=== PATIENT | female | born 1955 | race Caucasian/White ===

== ENCOUNTER 2016-12-21 10:00 | Inpatient (IN) ==
[2016-12-21] MEDS ORDERED: BENTYL LIQUID PO ONE (10:44)
[2016-12-21] MEDS ORDERED: NS 1,000 ML IV ONE (10:44)
--- NOTE | 2016-12-21 11:10 | PROVIDER DOCUMENTATION ---
HPI-Abdominal Pain/GI Problem - General Source: patient, family - History of Present Illness-ABD Nature of Presenting Problems: pt states on thursday she took a laxative which helped her have a bm, then yesterday continued with a few loose bm. today with crampling abd pain and pt states she has deep burping and is not passing gas. pt denies fever, nausea or vomiting but intermittent cramping remains. pt has had a long time problem with abd problems and up until about 2 years ago had irritable bowel syndrome but more recently problems with constipation pt states she used to see dr cobb for gi, but the last time she saw him she was not satisfied and would want someone else if needed and if possible. Abdominal Pain Onset Location: reports: RLQ, LLQ, periumbilical Pain Radiation: reports: back Quality of Pain: reports: aching, cramping Severity in ED: reports: moderate Timing: reports: intermittent Activities at Onset: reports: none Modifying Factors: improves with: nothing Last BM: last night Dark Stools Present?: reports: none noticed Rectal Bleeding: reports: none Emesis Description: reports: none <Manfred Hensley - Last Filed: 12/21/16 11:05> <Monique Best - Last Filed: 12/21/16 17:15> - General Chief Complaint: Abdominal Pain Stated Complaint: ABD PAIN Time Seen by Provider: 12/21/16 10:26 Allergies/Adverse Reactions: Patient Allergies Allergy/AdvReac Type Severity Reaction Status Date / Time tetanus and diphtheria AdvReac FLUSHING Verified 12/21/16 11:20 toxoids [tetanus & diphtheria toxoids] Home Medications: Home Medication List Medication Instructions Recorded Confirmed Last Taken Type Alprazolam [Xanax] 0.5 mg PO BID 01/31/16 12/21/16 12/21/16 09:00 History Aspirin 81 mg PO DAILY 01/31/16 12/21/16 12/21/16 09:00 History Clopidogrel Bisulfate [Plavix] 75 mg PO DAILY 01/31/16 12/21/16 12/21/16 09:00 History Isosorbide Dinitrate [Isordil] 30 mg PO QHS 01/31/16 12/21/16 12/20/16 History Metoprolol [Lopressor] 50 mg PO DAILY 01/31/16 12/21/16 12/21/16 09:00 History Pravastatin Sodium 20 mg PO DAILY 01/31/16 12/21/16 12/21/16 09:00 History Spironolactone [Aldactone] 12.5 mg PO DAILY 01/31/16 12/21/16 12/21/16 09:00 History Warfarin [Coumadin] 3 mg PO DIRECTED 01/31/16 12/21/16 12/21/16 09:00 History Escitalopram Oxalate [Lexapro] 10 mg PO DAILY 12/21/16 12/21/16 12/21/16 09:00 History Losartan [Cozaar] 50 mg PO DAILY 12/21/16 12/21/16 12/20/16 History Pantoprazole Sodium 40 mg PO DAILY 12/21/16 12/21/16 12/21/16 09:00 History Warfarin [Coumadin] 4 mg PO DIRECTED PRN 12/21/16 12/21/16 12/19/16 History Review of Systems - Adult - REVIEW OF SYSTEMS - ADULT Constitutional: reports: see HPI Eyes: reports: no symptoms reported Ears, Nose, Mouth & Throat: reports: no symptoms reported Cardiovascular: reports: no symptoms reported Respiratory: reports: no symptoms reported Gastrointestinal: reports: see HPI Genitourinary: reports: see HPI, other (has not urinated since last night as well) Musculoskeletal: reports: no symptoms reported Integumentary: reports: no symptoms reported Neurological: reports: no symptoms reported Psychiatric: reports: no symptoms reported Endocrine: reports: no symptoms reported Hematologic/Lymphatic: reports: no symptoms reported Allergic/Immunologic: reports: no symptoms reported All Other Systems: Reviewed and Negative <Manfred Hensley - Last Filed: 12/21/16 11:05> Past History - Adult - PAST MEDICAL HISTORY-ADULT Review of Records: reports: Old Records Reviewed, Nursing Assessment Review, Medications Reviewed Major Childhood Illnesses: reports: denies history Cardiovascular: reports: CHF, PR Respiratory: reports: COPD Gastrointestinal: reports: IBS Genitourinary: reports: denies history Musculoskeletal: reports: denies history Neurological: reports: denies history Psychiatric: reports: denies history Endocrine/Immune: reports: denies history - PRIOR SURGERIES/PROCEDURES Surgical/Procedure History: reports: hysterectomy, other - IMMUNIZATION STATUS Childhood Immunizations: See Nurse Assessment Flu Vaccine: See Nurse Assessment - FAMILY HISTORY Family History: reviewed, not pertinent - SOCIAL HISTORY Smoking: quit greater than 1 year Substance Use: none/never Alcohol Use Frequency: never Living Situation: family <Manfred Hensley - Last Filed: 12/21/16 11:05> Physical Exam-General - PHYSICAL EXAM-ADULT Initial Vital Signs Reviewed: Yes - CONSTITUTIONAL General Appearance: appears well, alert, no apparent distress - EYES Eyes: PERRL/EOMI - HEAD, EARS, NOSE, MOUTH & THROAT HENMT: normocephalic/atraumatic, moist mucous membranes, normal ENT inspection - NECK Neck: non-tender, full range of motion, supple, normal inspection - RESPIRATORY Respiratory: chest non-tender, lungs clear, normal breath sounds, no pleuratic chest pain, no respiratory distress, no accessory muscle use. negative: respiratory distress - CARDIOVASCULAR Cardiovascular: normal peripheral pulses, regular rate, rhythm. negative: no edema - GASTROINTESTINAL (ABDOMEN) Abdominal Exam: normal bowel sounds, non tender (periumbilical and bilateral lower), soft - MUSCULOSKELETAL Back Exam: normal inspection, no CVA tenderness, no vertebral tenderness. negative: CVA tenderness, decreased range of motion, ecchymosis Extremity: normal range of motion, non-tender, normal inspection, no pedal edema , no calf tenderness - SKIN Integumentary: normal color, normal turgor, warm/dry - NEUROLOGIC Neurologic: grossly normal - PSYCHIATRIC Psych/Mental Status: normal thought content, normal thought process, oriented x 3, anxious <Manfred Hensley - Last Filed: 12/21/16 11:05> Progress - PLAN OF CARE/RESULTS Progress/Plan/Lab Results: chart reviewed will check labs and ct a/p with iv contrast. r/o infection obstruction vs irritable bowel <Manfred Hensley - Last Filed: 12/21/16 11:05> - PLAN OF CARE/RESULTS Progress/Plan/Lab Results: Laboratory Tests 12/21/16 12/21/16 12/21/16 11:30 11:30 11:30 WBC 8.65 RBC 4.19 L Hgb 12.7 Hct 38.8 MCV 92.6 MCH 30.3 MCHC 32.7 L RDW Std Deviation 12.7 Plt Count 224 MPV 10.2 Immature Gran % (Auto) 0.0 Neut % (Auto) 82.2 H Lymph % (Auto) 12.6 L [place] % (Auto) 5.1 Eos % (Auto) 0.0 Baso % (Auto) 0.1 Immature Gran # (Auto) 0.00 Neut # (Auto) 7.11 H Lymph # (Auto) 1.09 L [place] # (Auto) 0.44 Eos # (Auto) 0.00 Baso # (Auto) 0.01 PT INR Sodium 140 Potassium 3.9 Chloride 98 Carbon Dioxide 29 Anion Gap 13 BUN 8 Creatinine 0.9 Estimated GFR/1.73 m2 > 60 BUN/Creatinine Ratio 9 Glucose 112 H Calculated Osmolality 278 Calcium 9.6 Total Bilirubin 0.46 AST 15 ALT 6 L Alkaline Phosphatase 92 Total Protein 7.1 Albumin 4.1 Globulin 3.0 Albumin/Globulin Ratio 1.4 Amylase 82 Lipase 19 Urine Source CLEAN CATCH Urine Color YELLOW Urine Turbidity CLEAR Urine pH 6.0 Ur Specific [place] 1.017 Urine Protein NEGATIVE Ur Glucose (Stick) NEGATIVE Ur Ketones (Stick) NEGATIVE Urine Blood SMALL A Urine Nitrite POSITIVE A Urine Bilirubin NEGATIVE Urobilinogen Dipstick NORMAL Urine Leukocytes NEGATIVE Urine WBC (Auto) <10 Urine RBC (Auto) <10 U Epithel Cells (Auto) <10 Urine Bacteria (Auto) 4+ 12/21/16 11:30 WBC RBC Hgb Hct MCV MCH MCHC RDW Std Deviation Plt Count MPV Immature Gran % (Auto) Neut % (Auto) Lymph % (Auto) [place] % (Auto) Eos % (Auto) Baso % (Auto) Immature Gran # (Auto) Neut # (Auto) Lymph # (Auto) [place] # (Auto) Eos # (Auto) Baso # (Auto) PT 44.2 H INR 3.86 Sodium Potassium Chloride Carbon Dioxide Anion Gap BUN Creatinine Estimated GFR/1.73 m2 BUN/Creatinine Ratio Glucose Calculated Osmolality Calcium Total Bilirubin AST ALT Alkaline Phosphatase Total Protein Albumin Globulin Albumin/Globulin Ratio Amylase Lipase Urine Source Urine Color Urine Turbidity Urine pH Ur Specific [place] Urine Protein Ur Glucose (Stick) Ur Ketones (Stick) Urine Blood Urine Nitrite Urine Bilirubin Urobilinogen Dipstick Urine Leukocytes Urine WBC (Auto) Urine RBC (Auto) U Epithel Cells (Auto) Urine Bacteria (Auto) Orders Category Date Time Status Saline Loc DIRECTED Care 12/21/16 10:45 Active NPO Diet 12/21/16 10:[address] ABD/PELVIS W/ IV CONT ONLY [CT] Stat Exams 12/21/16 10:44 Draft ABG [RESP] Routine Lab 12/21/16 13:08 Ordered AMYLASE [CHEM] Stat Lab 12/21/16 11:30 Completed CBC WITH ELECTRONIC DIFF [HEME] Stat Lab 12/21/16 11:30 Completed COMPREHENSIVE METABOLIC PANEL [CHEM] Stat Lab 12/21/16 11:30 Completed LIPASE [CHEM] Stat Lab 12/21/16 11:30 Completed PROTIME WITH INR [COAG] Stat Lab 12/21/16 11:30 Completed URINALYSIS W/POSS RFLX CULT [URINALYSIS] Stat Lab 12/21/16 11:30 Completed URINE CULTURE [RM] Routine Lab 12/21/16 12:07 Received 0.9% Sodium Chloride Inj [Ns] 1,000 ml Med 12/21/16 10:44 Discontinued IV 999 mls/hr Dicyclomine [Bentyl Liquid] Med 12/21/16 10:44 Discontinued 10 mg PO NOW ONE Metronidazole 500 mg/Ns [Flagyl 500 mg/Ns] 100 ml Med 12/21/16 13:09 Active IV NOW Piperacil/Tazobact 3.375 gm/Ns [Zosyn 3.375 gm/Ns] 50 Med 12/21/16 13:09 Active ml IV NOW Vital Signs - 24 hr 12/21/16 10:17 Temperature 97.8 F Pulse Rate 87 Respiratory 20 Rate Blood Pressure 125/84 O2 Sat by Pulse 96 Oximetry Laboratory Tests 12/21/16 12/21/16 12/21/16 11:30 11:30 11:30 WBC 8.65 RBC 4.19 L Hgb 12.7 Hct 38.8 MCV 92.6 MCH 30.3 MCHC 32.7 L RDW Std Deviation 12.7 Plt Count 224 MPV 10.2 Immature Gran % (Auto) 0.0 Neut % (Auto) 82.2 H Lymph % (Auto) 12.6 L [place] % (Auto) 5.1 Eos % (Auto) 0.0 Baso % (Auto) 0.1 Immature Gran # (Auto) 0.00 Neut # (Auto) 7.11 H Lymph # (Auto) 1.09 L [place] # (Auto) 0.44 Eos # (Auto) 0.00 Baso # (Auto) 0.01 PT INR Specimen Type Sample Site pH pCO2 pO2 HCO3 Base Excess Oxyhemoglobin ABG O2 Sat (Calculated) ABG O2 Saturation ABG Carboxyhemoglobin ABG Methemoglobin Sha Test A-a O2 Difference Total Hemoglobin Lactate Blood Gas Modality FiO2 % Sodium 140 Potassium 3.9 Chloride 98 Carbon Dioxide 29 Anion Gap 13 BUN 8 Creatinine 0.9 Estimated GFR/1.73 m2 > 60 BUN/Creatinine Ratio 9 Glucose 112 H Calculated Osmolality 278 Calcium 9.6 Total Bilirubin 0.46 AST 15 ALT 6 L Alkaline Phosphatase 92 Total Protein 7.1 Albumin 4.1 Globulin 3.0 Albumin/Globulin Ratio 1.4 Amylase 82 Lipase 19 Urine Source CLEAN CATCH Urine Color YELLOW Urine Turbidity CLEAR Urine pH 6.0 Ur Specific [place] 1.017 Urine Protein NEGATIVE Ur Glucose (Stick) NEGATIVE Ur Ketones (Stick) NEGATIVE Urine Blood SMALL A Urine Nitrite POSITIVE A Urine Bilirubin NEGATIVE Urobilinogen Dipstick NORMAL Urine Leukocytes NEGATIVE Urine WBC (Auto) <10 Urine RBC (Auto) <10 U Epithel Cells (Auto) <10 Urine Bacteria (Auto) 4+ 12/21/16 12/21/16 11:30 13:57 WBC RBC Hgb Hct MCV MCH MCHC RDW Std Deviation Plt Count MPV Immature Gran % (Auto) Neut % (Auto) Lymph % (Auto) [place] % (Auto) Eos % (Auto) Baso % (Auto) Immature Gran # (Auto) Neut # (Auto) Lymph # (Auto) [place] # (Auto) Eos # (Auto) Baso # (Auto) PT 44.2 H INR 3.86 Specimen Type ARTERIAL Sample Site R BRACHIAL pH 7.46 H pCO2 41 pO2 47 L* HCO3 28.5 H Base Excess 4.9 H Oxyhemoglobin 86.6 L* ABG O2 Sat (Calculated) 14.5 L ABG O2 Saturation 90.2 L ABG Carboxyhemoglobin 2.10 ABG Methemoglobin 1.9 H Sha Test NO A-a O2 Difference 51.0 Total Hemoglobin 11.9 Lactate 0.80 Blood Gas Modality ROOM AIR FiO2 % 21.0 Sodium Potassium Chloride Carbon Dioxide Anion Gap BUN Creatinine Estimated GFR/1.73 m2 BUN/Creatinine Ratio Glucose Calculated Osmolality Calcium Total Bilirubin AST ALT Alkaline Phosphatase Total Protein Albumin Globulin Albumin/Globulin Ratio Amylase Lipase Urine Source Urine Color Urine Turbidity Urine pH Ur Specific [place] Urine Protein Ur Glucose (Stick) Ur Ketones (Stick) Urine Blood Urine Nitrite Urine Bilirubin Urobilinogen Dipstick Urine Leukocytes Urine WBC (Auto) Urine RBC (Auto) U Epithel Cells (Auto) Urine Bacteria (Auto) - CT/MRI 1 CT Study: Abdomen, Pelvis Impression: Abnormal (very severe 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 moderately long segmental wall thickening with inflammation of the mid small bowel causing obstruction. the major differential possiblities include ischemic disease, Crohn disease, or focal enteritis. no perforation or adenopathy) - CONSULTS/PCP/HOSPITALIST Notification #1 *Consult/PCP/Hospitalist*: Dr. Mendez Time Discussed: 13:16 (Dr. Mendez states will look at scan and will see Pt in ED ) Reason/Comments: Dr. Hensley consulted with Dr. Mendez about Pt Consult Disposition: Will see in ED #2 Consult: Dr. Mendez Time Discussed: 13:46 Reason/Comments: Dr. Hensley consults with Dr. Mendez about Pt Consult Disposition: other (Dr. Mendez states admit Pt with hospitalist. Dr. Mendez states will have NG tube placed today and will consult with his partners about SBO.) #3 Consult: Dr. Vu Time Discussed: 13:58 (Dr. Vu accepted admit ) Reason/Comments: Dr. Hensley consulted with Dr. Vu about admit of Pt Consult Disposition: Admit <Monique Best - Last Filed: 12/21/16 17:15> Departure <Manfred Hensley - Last Filed: 12/21/16 11:05> - Departure Time of Disposition Order: 14:02 Certified Medical Emergency: Emergent <Monique Best - Last Filed: 12/21/16 17:15> - Departure DIAGNOSIS: Small bowel obstruction Disposition: ADMITTED INPATIENT 09 Condition: Stable Attestation - Scribe Verification/Attestation Scribe:: Monique Best Acting as Scribe for:: Manfred Hensley Scribe documention review:: This chart was documented by a scribe and accurately reflects the service the provider performed and the decisions made by the provider. <Monique Best - Last Filed: 12/21/16 17:15> Physician Attestation
[2016-12-21 11:56] LABS: MANUAL DIFF NEEDED? NO; URINE MICRO REVIEW NEEDED? NO; URINE SOURCE CLEAN CATCH
[2016-12-21 12:01] LABS: BASO% 0.1 % (0.0-0.8); HEMATOCRIT 38.8 % (37.0-47.0); HEMOGLOBIN 12.7 g/dL (12.0-16.0); LYMPH# 1.09 X1000 (1.2-3.4); LYMPH% 12.6 % (20.5-51.1); MCH 30.3 PG (27-31); MCHC 32.7 g/dL (33-37); MCV 92.6 FL (81-99); MONO# 0.44 X1000 (0.11-0.59); MONO% 5.1 % (1.7-9.3); MPV 10.2 FL (7.4-10.4); NEUT% 82.2 % (42.2-75.2); PLT 224 X1000 (130-400); RBC 4.19 XMIL (4.2-5.4)
[2016-12-21 12:02] LABS: BILIRUBIN URINE NEGATIVE (NEGATIVE); BLOOD URINE SMALL (NEGATIVE); COLOR YELLOW; GLUCOSE URINE NEGATIVE (NEGATIVE); LEUKOCYTES URINE NEGATIVE (NEGATIVE); NITRITE URINE POSITIVE (NEGATIVE); PROTEIN URINE NEGATIVE (NEGATIVE); SP GRAVITY URINE 1.017; TURBIDITY URINE CLEAR (CLEAR); UROBILINOGEN URINE NORMAL (NORMAL)
[2016-12-21 12:04] LABS: UR EPITHELIAL CELLS <10 /HPF (<10); URINE BACTERIA 4+ /HPF; URINE CULTURE NEEDED? YES; URINE RBC <10 /HPF (<10); URINE WBC <10 /HPF (<10)
[2016-12-21 12:14] LABS: INR 3.86; PROTIME 44.2 Seconds (9.2-11.7)
[2016-12-21 12:29] LABS: AGAP 13; ALBUMIN 4.1 g/dL (3.5-5.0); ALKALINE PHOSPHATASE 92 U/L (32-104); AMYLASE 82 U/L (20-200); BUN 8 mg/dL (8-22); CALCIUM 9.6 mg/dL (8.8-10.2); CHLORIDE 98 mmol/L (98-107); COSMO 278; GOT 15 U/L (10-30); GPT 6 U/L (10-36); LIPASE 19 U/L (13-60); POTASSIUM 3.9 mmol/L (3.5-5.1); SODIUM 140 mmol/L (136-145); TCO2 29 mmol/L (25-35); TOTAL BILIRUBIN 0.46 mg/dL (0.20-1.00); TOTAL PROTEIN 7.1 g/dL (6.3-8.3)
[2016-12-21] MEDS ORDERED: ZOSYN 3.375 GM/NS 50 ML IV ONE (13:09)
[2016-12-21] MEDS ORDERED: FLAGYL 500 MG/NS 100 ML IV ONE (13:09)
--- NOTE | 2016-12-21 13:19 | Diag Imaging Result Document ---
PROCEDURE NAME: CT ABD/PELVIS W/ IV CONT ONLY - 12/21/2016 CT ABDOMEN PELVIS WITH INTRAVENOUS CONTRAST, 12/21/2016: A CT dose reduction protocol was used. 1 mm reconstructions were performed, giving the same spatial resolution and diagnostic accuracy as a CT angiogram. COMPARISON: 02/10/2011. FINDINGS: In the relatively proximal small bowel in the left mid abdomen, there is a moderately long segment of abnormal wall thickening and narrowing that is causing obstruction. There is high- grade proximal small-bowel obstruction caused by this process, with small-bowel feces and dilation of the proximal bowel. The stomach is also somewhat dilated. The distal small bowel and the entire colon are all collapsed. There is some slight inflammatory edema surrounding the abnormal small-bowel loop. The solid organs are normal. The lung bases are clear. There is stable mild compression deformity of L2. There is heavy vascular disease at the origin of the celiac artery with severe stenosis of about 75%. There is also heavy disease at the proximal superior mesenteric artery with multifocal stenosis of about 75%. The inferior mesenteric artery is patent. No free air. There is trace pelvic free fluid. IMPRESSION: 1. Moderately long segmental wall thickening with inflammation of the mid small bowel causing obstruction. The major differential possibilities include ischemic disease, Crohn disease, or focal enteritis. No perforation or adenopathy. 2. 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 [facility]
[2016-12-21 14:07] LABS: ALLEN TEST NO; BE 4.9 mmoll (-3.0-3.0); BLOOD TYPE ARTERIAL; DRAW SITE R BRACHIAL; METHB 1.9 % (0.0-1.5); O2(CT) 14.5 mL/dL (15.0-23.0); PCO2(98.6) 41 mmHg (35-45); SAMPLE BLOOD; SAO2 90.2 % (95.0-100.0); THB 11.9 g/dL (11.5-17.4); pH(98.6) 7.46 (7.35-7.45)
[2016-12-21 14:08] LABS: MODALITY ROOM AIR; PO2(98.6) 47 mmHg (60-100)
[2016-12-21] MEDS ORDERED: HURRICAINE SPRAY (DOSE) ONE (14:48)
[2016-12-21] MEDS ORDERED: APRESOLINE IV PRN (16:55)
[2016-12-21] MEDS ORDERED: PROTONIX IV SCH (16:55)
--- NOTE | 2016-12-21 17:00 | Diag Imaging Result Document ---
PROCEDURE NAME: CHEST-PORTABLE - 12/21/2016 PORTABLE CHEST X-RAY: COMPARISON: 05/19/2016. FINDINGS: There is a nasogastric tube with the tip in the stomach. The lungs are clear and the heart size is normal. No pneumothorax or effusion. IMPRESSION: Good nasogastric tube placement.
--- NOTE | 2016-12-21 18:59 | CONSULTATION ---
DATE OF CONSULTATION: 12/21/2016 DATE: 12/21/2016. REASONS FOR CONSULTATION: Abdominal pain. Small-bowel obstruction. REQUESTING PHYSICIAN: Dr. Hensley. HISTORY OF PRESENT ILLNESS: This is a 61-year-old female with a long history of constipation who began having crampy abdominal pain yesterday with some nausea. No vomiting. She took a laxative and had a small bowel movement yesterday. She has not passed gas since then. She has had increased belching overnight. No exacerbating or relieving factors. No fever or chills. Before yesterday, she was in her usual state of health with chronic constipation, but no significant abdominal pain. She has had a good appetite. She denies any postprandial abdominal pain or weight loss in the last 6 months. PAST MEDICAL HISTORY: 1. Irritable bowel syndrome. 2. Chronic constipation. 3. Coronary artery disease. 4. Cardiac valvular disease. 5. Congestive heart failure. 6. History of myocardial infarction. 7. Chronic obstructive pulmonary disorder. ALLERGIES: 1. Tetanus. 2. Diphtheria toxoid. HOME MEDICATIONS: 1. Plavix 75 mg p.o. daily. 2. Pravastatin 20 mg p.o. daily. 3. Xanax 0.5 mg p.o. b.i.d. 4. Isosorbide dinitrate 30 mg p.o. at bedtime. 5. Lopressor 50 mg p.o. daily. 6. Aspirin 81 mg p.o. daily. 7. Coumadin 3 mg as directed. 8. Coumadin 4 mg as directed. 9. Aldactone 12.5 mg p.o. daily. 10. Lexapro 10 mg p.o. daily. 11. Cozaar 50 mg p.o. daily. 12. Protonix 40 mg p.o. daily. PAST SURGICAL HISTORY: 1. Hysterectomy. 2. Mitral valve replacement with a prosthetic valve. 3. Ganglion cyst removed from the right foot. 4. Achilles tendon repair from the left leg. 5. Coronary stents were placed 2 years ago. FAMILY HISTORY: Reviewed and noncontributory. SOCIAL HISTORY: She quit smoking a year ago. She denies alcohol or illicit drug use. REVIEW OF SYSTEMS: Ten systems reviewed and negative except as noted above. PHYSICAL EXAMINATION: Vital Signs: Temperature 97.8 degrees, pulse 63, respirations 20, blood pressure 158/98, O2 saturation 95%. General: Well-developed, elderly female, in no distress. She looks stated age. HEENT: Normocephalic, atraumatic. Extraocular muscles intact. Pupils equal, round, reactive to light. Sclerae anicteric. Neck: Supple. No thyromegaly. CV: Regular rate and rhythm. Respiratory: Bilateral breath sounds. No work of breathing. GI: Soft, distended. She is moderately tender diffusely. No rebound or guarding. No mass or hernias appreciated. Skin: Warm and dry. No rash. Musculoskeletal: Moves all extremities equally and well. Extremities: No clubbing, cyanosis, or edema. LABORATORY: CBC: White blood cell count 8.6, hemoglobin 12.7, hematocrit 38.8, platelet count 224,000. Chem: Sodium 140, potassium 3.9, chloride 98, CO2 of 29, BUN 8, creatinine 0.9, glucose 112, AST 15, ALT 6, alkaline phosphatase 92, total bilirubin 0.5, amylase 82, lipase 19. ABG: Shows a pH of 7.462, PC02 41, PaO2 47, bicarb 28, base excess 4.9, lactate 0.8. Urinalysis: Positive for nitrites and 4+ bacteria. IMAGING: CT of abdomen and pelvis: Shows: 1. A small bowel obstruction in the proximal small bowel with a long segment of thickened and narrowed bowel. 2. No free air. 3. The stomach is moderately distended with fluid. 4. The patient has calcific plaque in the aorta at the takeoff of the celiac and superior mesenteric arteries. Neither are occluded, but there is stenosis there. ASSESSMENT/PLAN: A 59-year-old female with a rather acute onset of crampy abdominal pain and imaging showing an abnormal segment small bowel with a proximal small-bowel obstruction. At this time, she will need NG tube decompression. She will be kept nothing per oral. Her INR needs to be reversed and I think tomorrow she will need a small bowel follow through.
[2016-12-21] MEDS: DUONEB (A & A) INH SCH ×2 (19:30→23:30)
--- NOTE | 2016-12-21 21:26 | CONSULTATION ---
DATE OF CONSULTATION: 12/21/2016 REFERRING PHYSICIAN: Mafnred Hensley M.D. PRIMARY HOSPITALIST: Nikita Vu M.D. PRIMARY CARE PHYSICIAN: Jazmin Mendez M.D. PRIMARY MANAGEMENT REP: Camelia Auguste M.D. HISTORY OF PRESENT ILLNESS: The patient is a 61-year-old white female who presented today with severe abdominal pain, nausea and interval change in bowel habits. She is followed by Dr. Camelia Auguste. She states that she began having stomach trouble sometime in early . She initially was being managed for chronic diarrhea that begin some around 1999. She was diagnosed with IBS diarrhea predominant in 2013. Over the last 3 years, she reports that the diarrhea has progressed to severe constipation. It has become progressively worse in the last 3 days. She is taking laxatives and eating a high fiber diet in order to defecate. She states that 3 days prior to admission she stopped having flatus. One day prior to admission, she ate apples and consumed copious amounts of high-fiber food in order to defecate and then she took a laxative. She states that after taking a laxative she had a small bowel movement where her stools were pellet like in shape. She then had no bowel movement and no flatus overnight. She describes increased eructation and gas pain associated with periumbilical abdominal pain. She presented to the emergency room because she was unable to achieve relief. The CT scan in the emergency room was remarkable for moderately long segment of abdominal wall thickening and narrowing with obstruction in the small bowel. There was also a high-grade proximal small bowel obstruction with small bowel feces and dilation in the proximal bowel. The stomach was also dilated with collapse of the distal small bowel in the entire colon. There were inflammatory changes and bowel wall edema around the loop of small bowel that was thickened. 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 The inferior mesenteric artery was patent. There was trace pelvic fluid but no free air. Because of her symptoms, we are asked to participate in her care. It should be noted that the patient reports that her mother of colon cancer at age 70 years of age. She has undergone regular screening colonoscopy by Dr. Camelia Auguste. PAST MEDICAL HISTORY: 1. Irritable bowel syndrome. 2. Initially chronic diarrhea prior to 2013 now with chronic constipation. 3. Coronary artery disease. 4. Valvular heart disease with mitral valve disease. She is status post mitral valve replacement with a St. Shiv valve. PAST MEDICAL HISTORY: 1. Congestive heart failure. 2. Myocardial infarction. 3. COPD. PAST SURGICAL HISTORY: Hysterectomy. Mitral valve replacement with a St. Shiv prosthetic valve. Ganglion cyst removal from the right foot. Achilles tendon repair of the left leg. Coronary artery stents placed in 2014. MEDICATION ALLERGIES: Tetanus. Diphtheria toxoid. HOME MEDICATIONS: Plavix. Pravastatin. Xanax. Isosorbide. Lopressor. Aspirin. Coumadin. Aldactone. Lexapro. Cozaar. Protonix. FAMILY HISTORY: Remarkable in that her mother had colon cancer at age 70 years of age. SOCIAL HISTORY: The patient previously smoked, but stopped smoking 1 year ago. She denies alcohol or illicit drug use. REVIEW OF SYSTEMS: Remarkable for nausea, dry heaves, periumbilical abdominal pain, the absence of flatus and constipation. PHYSICAL EXAMINATION: General: She is in no acute distress. Vital signs: Her blood pressure is 145/98, pulse is 63, respiration 13. Her temperature is. 97.8. HEENT: Negative for jaundice. Her conjunctivae are normal. Her sclerae are anicteric. Her oropharyngeal mucosa membranes are unremarkable. Pulmonary: Lungs are clear to auscultation with normal expiratory effort. Cardiovascular: Reveals regular rate and rhythm with no murmurs, gallops, or rubs. Abdominal: Reveals hypoactive bowel sounds. The abdomen is soft with mild diffuse tenderness, but there is no rebound or guarding. Extremities: Bilaterally are negative for cyanosis, clubbing, or edema. Neurologic: She is alert and oriented x3 with the appropriate mood, affect, and memory. OBJECTIVE DATA: Reveals a hemoglobin of 12.7, hematocrit of 38.8, and a white count of 8.65 with 224,000 platelets. Her PT is 44.2 with an INR of 3.86. Her blood gas on room air reveals a pH is 7.46 with a pCO2 of 41 and a PO2 of 47. Sodium is 140, potassium 3.9, chloride 98, CO2 29, BUN 8, creatinine 0.9 with a glucose of 112. Calcium is 9.6, total bilirubin 0.47, AST 15, ALT 6, alkaline phosphatase 92, total protein 7.1, albumin of 4.1. Amylase is 82, lipase is 19, plasma lactate of 1.6. Urinalysis reveals a pH of 6.90 with a specific gravity of 1.017. IMPRESSION: 1. Small bowel obstruction. 2. History of chronic diarrhea followed by transition to chronic constipation. 3. Small-bowel enteritis with inflammatory changes that are worrisome for malignancy versus inflammatory bowel disease. 4. History of gastroesophageal reflux disease. RECOMMENDATION: 1. I agree with the NG tube decompression in light of the fact that her stomach and proximal small bowel are dilated. 2. Increase Protonix to 40 mg IV q.12 hours. 3. I agree with IV antibiotic such as Levaquin and Flagyl. 4. I agree with surgical consult. 5. Please check CRP and IBD profile. 6. She may require steroids if this is inflammatory bowel disease if she fails to improve with antibiotics. 7. The goal is to try to treat her symptomatically with conservative management in light of her need for longstanding anticoagulation. 8. I would obtain a small-bowel followthrough for further assessment of her small bowel disease. I recommend the use of water soluble contrast. 9. Additional recommendations to follow based on her clinical course. JOVANNI
[2016-12-21] MEDS: LEVAQUIN 500 MG/D5W 100 ML IV SCH (21:27)
[2016-12-21] MEDS: FLAGYL 500 MG/NS 100 ML IV SCH (21:28)
[2016-12-21] MEDS: PROTONIX IV SCH (21:28)
--- NOTE | 2016-12-21 21:28 | HISTORY AND PHYSICAL ---
CHIEF COMPLAINT: Abdominal pain. HISTORY OF PRESENT ILLNESS: Ms. Durant is a 61-year-old female with a history of vasculopathy who comes in with abdominal pain that began yesterday. She has actually been dealing home with irritable bowel syndrome for about two years with intermittent abdominal cramping and occasional vomiting, but Thursday she took a laxative for constipation which did relieve her symptoms, but yesterday she began having cramping-type abdominal pain and was not really able to pass any gas and became more constipated. She denies any diarrhea, but does report loose bowel movements prior to her worsening symptoms yesterday. She denies any hematochezia or melena. She denies hematemesis. She does report some nausea and occasional vomiting. She denies any chest pain, she has chronic shortness of breath. She denies any lower extremity edema or orthopnea. When she came to the ER, she had labs and diagnostics done. Her laboratory data is largely unremarkable. She does have elevated INR, but this is secondary to her Coumadin use which is secondary to mechanical mitral valve. A CT of the abdomen and pelvis showed moderately long segmental wall thickening with inflammation in the mid small bowel causing obstruction. There was very severe vascular disease of the aorta, particularly the celiac and superior mesenteric arteries. Dr. Mendez has seen the patient in the ER and has ordered an NG tube, which has been placed successfully. We are going to consult GI and admit the patient for further treatment and evaluation. PAST MEDICAL HISTORY: 1. CAD, status post coronary stenting. 2. COPD. 3. Hypertension. 4. Hyperlipidemia. 5. Status post mechanical mitral valve on Coumadin therapy. 6. CVA with mild left-sided weakness. 7. Vasculopathy. PAST SURGICAL HISTORY: Mitral valve replacement with mechanical valve, partial hysterectomy, bilateral oophorectomy, cervical spine fusion, ganglion cyst excision of the foot and Achilles tendon repair. SOCIAL HISTORY: Patient quit smoking 2 or 3 years ago. She denies any current tobacco alcohol or drug use. She is single. She has 1 child. She lives with her sister and son. FAMILY HISTORY: Both parents . Mother had a history of colon cancer. from possible pulmonary embolus. Also she had a history of diabetes and hypertension. Father from a massive [place] at 61 years old. REVIEW OF SYSTEMS: Fourteen-point review of systems obtained and found to be negative with the exception of the HPI. ALLERGIES: Tetanus and diphtheria toxoids. HOME MEDICATIONS: Xanax 0.5 mg p.o. b.i.d., aspirin 81 mg daily, Plavix 75 mg daily, Lexapro 10 mg daily, Isordil 30 mg at bedtime, Cozaar 50 mg daily, Lopressor 50 mg daily, Pantoprazole 40 mg daily, pravastatin 20 mg daily, Aldactone 12.5 mg daily, Coumadin 3 mg as directed. PHYSICAL EXAMINATION: VITAL SIGNS: Blood pressure is 158/98, heart rate 63, respiratory rate 20, O2 saturation 95% on room air. Temperature is 97.8 degrees. GENERAL: This is a chronically ill-appearing 61-year-old, female lying in hospital bed in no acute distress. NEUROLOGIC: The patient is awake, alert, and oriented. She has some mild left-sided weakness. Otherwise, no other focal deficits. HEENT: Head is atraumatic and normocephalic. Her pupils are equal, round, reactive to light. Oral mucosa is moist. NG tube is noted. There is no JVD. CHEST: Diminished at the bases. Otherwise, clear to auscultation bilaterally. GI: Soft, nondistended, but she has generalized tenderness to palpation. EXTREMITIES: Without edema, clubbing or cyanosis. Pulses are palpable, but diminished bilaterally. DIAGNOSTIC DATA: CT of the abdomen shows segmental wall thickening with inflammation of the mid small bowel causing obstruction. There is also very severe vascular disease of the aorta, particularly the celiac and superior mesenteric artery origins. WBC 8.65, hemoglobin 12.7, hematocrit 38.8, platelet count 224,000. PT 44.2, INR 3.86, sodium 140, potassium 3.9, chloride 98, CO2 29, anion gap 13, BUN 8, creatinine 0.9, glucose is 112, calcium 9.6. LFTs within normal limits. Lipase 19. UA shows small blood, positive nitrite, with 4+ bacteria. ASSESSMENT AND PLAN: 1. Presumed ischemic colitis with associated small-bowel obstruction: An NG tube has been placed. We will continue Flagyl and Levaquin. Consult Gastroenterology. Keep her nothing per oral. Check serial x-rays and monitor her gastrointestinal status closely. We will also check a lactic acid. 2. Mechanical mitral valve: We have consulted Cardiology for anticoagulation management, she will need heparin bridging while her Coumadin is discontinued. Again we will defer to Cardiology for that. 3. Generalized vasculopathy: Her medicines are on hold for now. We will continue these once we are able. She denies any overt chest pain. She has no neurologic complaints and her pulses are palpable in all 4 extremities. 4. Hypertension: We will treat with IV as needed. 5. Chronic obstructive pulmonary disease. Continue oxygen as needed, p.r.n. nebulizers and aggressive pulmonary toilet. 6. Deep venous thrombosis prophylaxis will be provided with heparin or Coumadin per Cardiology recommendation. Further recommendations to follow. Dictated by ARELY Godoy for Nikita Vu MD
[2016-12-21] MEDS ORDERED: TORADOL IV ONE (21:29)
[2016-12-21] MEDS: NS 1,000 ML IV SCH (23:00)
[2016-12-22] MEDS: FLAGYL 500 MG/NS 100 ML IV SCH ×4 (02:07→20:37)
--- NOTE | 2016-12-22 02:41 | CONSULTATION ---
DATE OF CONSULTATION: 12/21/2016 REFERRING PHYSICIAN: Nikita Vu M.D. PRIMARY CARE PHYSICIAN: Ray Mendez M.D. (Continuation of dictation) PAST MEDICAL HISTORY: 1. Congestive heart failure. 2. Myocardial infarction. 3. COPD. PAST SURGICAL HISTORY: 1. Hysterectomy. 2. Mitral valve replacement with a St. Shiv prosthetic valve. 3. Ganglion cyst removal from the right foot. 4. Achilles tendon repair of the left leg. 5. Coronary artery stents placed in 2014. MEDICATION ALLERGIES: 1. Tetanus. 2. Diphtheria toxoid. HOME MEDICATIONS: 1. Plavix. 2. Pravastatin. 3. Xanax. 4. Isosorbide. 5. Lopressor. 6. Aspirin. 7. Coumadin. 8. Aldactone. 9. Lexapro. 10. Cozaar. 11. Protonix. FAMILY HISTORY: Remarkable in that her mother had colon cancer at age 70 years of age. SOCIAL HISTORY: The patient previously smoked, but stopped smoking 1 year ago. She denies alcohol or illicit drug use. REVIEW OF SYSTEMS: Remarkable for nausea, dry heaves, periumbilical abdominal pain, the absence of flatus and constipation. PHYSICAL EXAMINATION: General: She is in no acute distress. Vital signs: Her blood pressure is 145/98, pulse is 63, respiration 13. Her temperature is. 97.8. HEENT: Negative for jaundice. Her conjunctivae are normal. Her sclerae are anicteric. Her oropharyngeal mucosa membranes are unremarkable. Pulmonary: Lungs are clear to auscultation with normal expiratory effort. Cardiovascular: Reveals regular rate and rhythm with no murmurs, gallops, or rubs. Abdominal: Reveals hypoactive bowel sounds. The abdomen is soft with mild diffuse tenderness, but there is no rebound or guarding. Extremities: Bilaterally are negative for cyanosis, clubbing, or edema. Neurologic: She is alert and oriented x3 with the appropriate mood, affect, and memory. OBJECTIVE DATA: Reveals a hemoglobin of 12.7, hematocrit of 38.8, and a white count of 8.65 with 224,000 platelets. Her PT is 44.2 with an INR of 3.86. Her blood gas on room air reveals a pH is 7.46 with a pCO2 of 41 and a PO2 of 47. Sodium is 140, potassium 3.9, chloride 98, CO2 29, BUN 8, creatinine 0.9 with a glucose of 112. Calcium is 9.6, total bilirubin 0.47, AST 15, ALT 6, alkaline phosphatase 92, total protein 7.1, albumin of 4.1. Amylase is 82, lipase is 19, plasma lactate of 1.6. Urinalysis reveals a pH of 6.90 with a specific gravity of 1.017. IMPRESSION: 1. Small bowel obstruction. 2. History of chronic diarrhea followed by transition to chronic constipation. 3. Small-bowel enteritis with inflammatory changes that are worrisome for malignancy versus inflammatory bowel disease. 4. History of gastroesophageal reflux disease. RECOMMENDATION: 1. I agree with the NG tube decompression in light of the fact that her stomach and proximal small bowel are dilated. 2. Increase Protonix to 40 mg IV q.12 hours. 3. I agree with IV antibiotic such as Levaquin and Flagyl. 4. I agree with surgical consult. 5. Please check CRP and IBD profile. 6. She may require steroids if this is inflammatory bowel disease if she fails to improve with antibiotics. 7. The goal is to try to treat her symptomatically with conservative management in light of her need for longstanding anticoagulation. 8. I would obtain a small-bowel followthrough for further assessment of her small bowel disease. I recommend the use of water soluble contrast. 9. Additional recommendations to follow based on her clinical course. JOVANNI
--- NOTE | 2016-12-22 02:46 | CONSULTATION ---
DATE OF CONSULTATION: 12/21/2016 REFERRING PHYSICIAN: Nikita Vu M.D. PRIMARY CARE PHYSICIAN: Ray Mendez M.D. (Continuation of dictation) IMPRESSION: 1. Small bowel obstruction. 2. History of chronic diarrhea followed by transition to chronic constipation. 3. Small-bowel enteritis with inflammatory changes that are worrisome for malignancy versus inflammatory bowel disease. 4. History of gastroesophageal reflux disease. RECOMMENDATION: 1. I agree with the NG tube decompression in light of the fact that her stomach and proximal small bowel are dilated. 2. Increase Protonix to 40 mg IV q.12 hours. 3. I agree with IV antibiotic such as Levaquin and Flagyl. 4. I agree with surgical consult. 5. Please check CRP and IBD profile. 6. She may require steroids if this is inflammatory bowel disease if she fails to improve with antibiotics. 7. The goal is to try to treat her symptomatically with conservative management in light of her need for longstanding anticoagulation. 8. I would obtain a small-bowel followthrough for further assessment of her small bowel disease. I recommend the use of water soluble contrast. 9. Additional recommendations to follow based on her clinical course. MTDD
[2016-12-22] MEDS: DUONEB (A & A) INH SCH ×6 (03:30→22:38)
--- NOTE | 2016-12-22 07:09 | PROGRESS NOTE ---
DATE: 12/22/2016 SUBJECTIVE: Patient doing well. Her abdominal pain has improved. She is not sick to her stomach. She does feel slightly bloated but much improved since her admission. She reports no passage of flatus and no bowel movement. OBJECTIVE: Vital Signs: Patient is currently afebrile. Her vital signs have been stable. General: No acute distress. Alert, interactive, female, looks stated age. HEENT: Normocephalic, atraumatic. Pupils equal, round, react to light. Mucous membranes moist. Oropharynx benign. Neck: Supple. Trachea midline. Cardiovascular: Regular rate and rhythm. Lungs: Grossly clear. Abdomen: Soft. Minimally distended. No tenderness to palpation at this time. No peritoneal signs. Skin: No signs of jaundice. Vascular: All extremities perfused. Extremities: Moves all extremities. LABORATORY: Reviewed from yesterday. Current labs pending. ASSESSMENT AND PLAN: A 61-year-old female with multiple medical comorbidities and small segment bowel obstruction. 1. Small bowel obstruction with the proximal small bowel. At this time, her clinical status seems to be improving within conservative nonoperative management. Will order a small bowel follow through. There is some potential for inflammatory bowel disease versus ischemic bowel versus segmental localized enteritis. She has several panels pending and will follow up with the results of these. Overall hold lactic acid is normal. Lower abdominal exam is normal so I suspect ischemic bowel is less likely, but again we will order the small bowel follow through. 2. Multiple medical comorbidities. At this time, being managed by the hospitalist service. She has previously been on Coumadin likely secondary to mitral valve replacement. We will continue to follow.
[2016-12-22] MEDS ORDERED: HEPARIN 25,000 UNITS/D5W 250 ML IV SCH ×2 (08:00→19:00)
[2016-12-22] MEDS: PROTONIX IV SCH ×2 (09:56→20:36)
[2016-12-22] MEDS: SODIUM CHLORIDE 0.9% INJ SCH (09:56)
--- NOTE | 2016-12-22 10:14 | Diag Imaging Result Document ---
PROCEDURE NAME: ABDOMEN FLAT/UPRIGHT - 12/22/2016 FLAT AND UPRIGHT RADIOGRAPH OF THE ABDOMEN: COMPARISON: 12/22/2016. FINDINGS: There are several small air-fluid levels scattered throughout the abdomen. There is a moderately distended loop of bowel in the mid left abdomen. This is nonspecific. Small-bowel obstruction cannot be excluded. There is no evidence of large-volume free abdominal gas. IMPRESSION: Nonspecific abdomen as described.
[2016-12-22 12:16] LABS: HEMATOCRIT 35.8 % (37.0-47.0); HEMOGLOBIN 11.3 g/dL (12.0-16.0); MCH 29.7 PG (27-31); MCHC 31.6 g/dL (33-37); MPV 10.4 FL (7.4-10.4); RBC 3.81 XMIL (4.2-5.4)
[2016-12-22 12:24] LABS: HEMOGLOBIN A1C 5.3 % (4.8-6.0)
[2016-12-22 12:32] LABS: AGAP 12; BUN 8 mg/dL (8-22); CALCIUM 8.7 mg/dL (8.8-10.2); CHLORIDE 99 mmol/L (98-107); COSMO 276; HDL 43 mg/dL (45-65); LDL 62 mg/dL; POTASSIUM 3.8 mmol/L (3.5-5.1); SODIUM 139 mmol/L (136-145); TCO2 28 mmol/L (25-35); TRIGLYCERIDES 64 mg/dL (35-135); VLDL 13 mg/dL
[2016-12-22 12:38] LABS: INR 4.99
--- NOTE | 2016-12-22 16:05 | PROGRESS NOTE ---
DATE: 12/22/2016 SUBJECTIVE: Today Ms. Durant referred to be doing fine. According to her, she has a little bit of abdominal distention, but the pain has substantially reduced. OBJECTIVE: Vital signs: Blood pressure is 120/65, pulse over 67, respirations 19, temperature is 97.6 degrees. General Examination: Ms. Durant is a 61-year-old female. She was in bed. She did not seem to be in any distress. HEENT: Mucosa is pink and moist. Anicteric. Acyanotic. Neck: Supple. Chest: Good air entry bilaterally. A few bibasilar crepitations. Cardiovascular: Regular rate and rhythm. No murmurs, no rubs, no gallops. Loud mechanical S1. Abdomen: Soft. Is mildly distended. Bowel sounds are reduced, but is mildly tender in the epigastrium. Extremities: No pedal edema. Distal pulses are present, but remarkably reduced. 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 There is no focal neurological deficit. LABORATORY DATA: WBC 6.88, hemoglobin is 11.3, platelet count of 167,000. Chemistry: Sodium is 139, potassium 3.8, chloride 99, bicarb is 28,. An abdominal x-ray, which was done this morning, shows several small air fluid levels scattered throughout the abdomen. There is moderate distended loop of bowel in the mid- left abdomen. This is nonspecific. Small bowel obstruction cannot be excluded. ASSESSMENT: 1. Abdominal pain secondary to small-bowel obstruction. The etiology is unclear. We think it is probably ischemic origin; however, inflammatory bowel disease is also a possibility. Patient is currently being followed by GI and Surgery. There is an order to do a small bowel follow- through to see if there is any obstruction. 2. Mechanical mitral valve. The patient was on Coumadin . This has been withheld because she is NPO and she is currently on heparin drip to bridge. 3. Generalized vasculopathy. The patient does have CT scan images consistent with significant celiac and mesenteric vascular atherosclerotic changes. Will start on statins when able to use the enteral route 4. Hypertension. Currently stable. 5. History of chronic obstructive pulmonary disease. Not in exacerbation. In general, Ms. Durant got admitted yesterday because of couple days history of abdominal pain. Upon presentation, an initial CT scan of the abdomen and pelvis showed moderate long segment thickening with inflammation, which was consistent with small bowel obstruction likely due to ischemic versus inflammatory. The patient is being managed non-operatively for now. Abdominal pain is gradually improving. She will be getting a small bowel follow-through to see if there is any transition point. For now, we will continue with NG tube decompression and we will do serial abdominal exams and follow labs with lactate levels on daily basis as well. Both surgery and GI are on board. Patient is currently on heparin drip because of the mechanical valve. [facility] CENTERArturo
[2016-12-22] MEDS: LEVAQUIN 500 MG/D5W 100 ML IV SCH (17:01)
--- NOTE | 2016-12-22 17:04 | Diag Imaging Result Document ---
PROCEDURE NAME: SMALL BOWEL SERIES ONLY - 12/22/2016 SMALL BOWEL SERIES PERFORMED THROUGH NG TUBE: FINDINGS: There is barium seen on the first image through the stomach, duodenum and much of the proximal jejunum. There are retained food particles seen in the mid portion of the mid jejunum. This bowel loop is somewhat dilated, but there is no evidence of mucosal fold thickening. There is some stasis during this study which extended to over an hour without the significant progression of the barium column. There are multiple small diverticula present along the margin of one of the jejunal loops. By 5 hours, there has still not been significant progress of the barium beyond the loops which were visible at the 1 hour point. At 7 hours there has been progression of the barium to the terminal ileum and ascending colon. The ileum is markedly decompressed with luminal dimensions less than 5 mm. There is some tenderness over this area to palpation. There is peristalsis in the ileum. IMPRESSION: 1. Marked change in caliber of the jejunum to the ileum. The possibility of a partial small bowel obstruction due to stricture or adhesive band is suggested. There may be some degree of phytobezoar formation proximal to the stenosis. 2. Diverticulosis of the small bowel as described. [facility]
[2016-12-23] MEDS: FLAGYL 500 MG/NS 100 ML IV SCH ×4 (02:28→20:41)
[2016-12-23] MEDS: DUONEB (A & A) INH SCH ×6 (03:46→23:22)
[2016-12-23 04:03] LABS: HEMATOCRIT 32.3 % (37.0-47.0); HEMOGLOBIN 10.2 g/dL (12.0-16.0); MCH 29.7 PG (27-31); MCHC 31.6 g/dL (33-37); MCV 93.9 FL (81-99); MPV 10.5 FL (7.4-10.4); RBC 3.44 XMIL (4.2-5.4)
[2016-12-23 04:10] LABS: INR 4.41; PROTIME 50.9 Seconds (9.2-11.7)
[2016-12-23 04:44] LABS: CALCIUM 8.1 mg/dL (8.8-10.2); POTASSIUM 2.9 mmol/L (3.5-5.1)
[2016-12-23] MEDS ORDERED: HEPARIN 25,000 UNITS/D5W 250 ML IV SCH ×2 (05:15→13:00)
[2016-12-23] MEDS: NS 1,000 ML IV SCH ×3 (06:31→20:41)
--- NOTE | 2016-12-23 07:08 | PROGRESS NOTE ---
DATE: 12/23/2016 SUBJECTIVE: Patient doing well. She reported passing some flatus. Reviewed her small bowel series. There appears to be potentially a strictured area in her distal jejunum, maybe proximal ileum, although this is not a completely obstructing lesion. She does get contrast through the area and into her colon. Clinically, she is without abdominal pain, without nausea. Her NG tube has not had much output. OBJECTIVE: Vital Signs: Patient is currently afebrile. Her vital signs have been stable. General Examination: No acute distress. Alert and interactive, female. Looks stated age. HEENT: Normocephalic and atraumatic. Pupils equal, round, reactive to light. Mucous membranes moist. Oropharynx benign. Neck: Supple. Trachea midline. Cardiovascular: Regular rate and rhythm. Lungs: Grossly clear. Abdomen: Soft. Distention appears overall improved. No tenderness to palpation. No peritoneal signs. Skin: No signs of jaundice. Vascular: All extremities perfused. Laboratory: Reviewed from this morning. Her INR still remains above 4. BMP reviewed. Of note, her potassium is 2.9. ASSESSMENT AND PLAN: A 61-year-old, female with multiple medical comorbidities with small bowel segment obstruction. 1. Small bowel obstruction with proximal small bowel. At this time, she had a small-bowel follow- through which did not show complete obstruction. At this time, given her lack of nasogastric tube output and lack of nausea, we will clamp her tube and start her on clear liquids. She is passing flatus. We will continue to monitor. She has a several panels pending to follow up with potential for Crohn's or inflammatory bowel disease. We will follow up with those results. 2. Multiple medical comorbidities including electrolyte imbalances to be managed by the hospitalist service. We will continue to follow.
--- NOTE | 2016-12-23 10:15 | Diag Imaging Result Document ---
PROCEDURE NAME: ABDOMEN FLAT/UPRIGHT - 12/23/2016 FLAT AND UPRIGHT ABDOMEN: FINDINGS: There is still considerable barium as well as some gas and dilatation of the loops of jejunum on the left side of the abdomen. The more distal small bowel is decreased in caliber in comparison. There is still considerable retained barium in the ascending colon with some present in the rectosigmoid. On the supine radiograph the transitional point appears to be slightly to the left of the L5 vertebral body. IMPRESSION: Partial small-bowel obstruction. There may be some degree of ileus given the fairly slow progress of the barium through the colon as well.
[2016-12-23] MEDS: PROTONIX IV SCH ×2 (10:28→20:41)
[2016-12-23] MEDS: SODIUM CHLORIDE 0.9% INJ SCH ×2 (10:28→20:41)
[2016-12-23] MEDS: HEPARIN 25,000 UNITS/D5W 250 ML IV SCH (13:00)
--- NOTE | 2016-12-23 19:22 | PROGRESS NOTE ---
DATE: 12/23/2016 SUBJECTIVE: This is a 61-year-old who presented on 12/21/2016 with a history of vasculopathy who came in with abdominal pain that began the day before. She actually was dealing with irritable bowel syndrome for about 10 years, intermittent abdominal cramping, occasional vomiting, but recently took a laxative for constipation which did relieve her symptoms. The day before admission she started having crampy abdominal pain and was not really able to pass any gas. She became more constipated and more bloated. CT of the abdomen and pelvis showed moderately long segmental wall thickening and inflammation in the mid small bowel causing obstipation. There was very severe vascular disease. Patient with nasogastric tube in. She is drinking liquids. She is feeling some rumbling in her tummy. She has not had a bowel movement yet. PHYSICAL EXAMINATION: General: Awake and alert. Vital Signs: Afebrile, temp 97.7 degrees, pulse 94, respirations 14, blood pressure 152/87, CVP less than 6 cm. Lungs: Clear in all lung brown. Cardiovascular Examination: Regular rhythm and rate without murmur or S3. OUTPUT: Good urine output, 700 mL. LABS: White count 5220, hematocrit 32, platelet count 151,000. Sodium 146, potassium 2.9, chloride 105, bicarbonate 27, BUN 6, creatinine 1.0, magnesium 1.6. ASSESSMENT AND PLAN: 1. Small-bowel obstruction in proximal small bowel at this time. She had a small bowel follow- through which did not show complete obstruction. Given her lack of nasogastric tube output and lack of nausea, clamp the tube. Start her on clear liquids. Hopefully we can pull the tube tomorrow. She has several panels pending. Follow up for potential Crohn's or inflammatory bowel disease. Dr. Hernandez is following as well as well as Dr. Turner. 2. Mechanical mitral valve. She is on Coumadin. We are watching her pro time. Apparently pro time was 50 on presentation, PTT greater than 200. Her Coumadin is being held. She is on heparin at the present time. 3. Generalized vasculopathy. She had a CT done consistent with significant celiac or mesenteric vascular atherosclerotic changes. I will start her on some statins. 4. Hypertension. Continue following. 5. Chronic obstructive pulmonary disease. Air and gas exchange looks okay. 6. Abdominal x-ray this morning shows partial small bowel obstruction, maybe some degree of ileus given the fairly slow progress of the barium through the colon as well. I have reviewed all the orders. I do not see any changes. She is on Protonix 40 mg IV q.12 hour. She is on a heparin drip. They are holding the Coumadin. She is on Levaquin 500 mg IV q. daily and Flagyl receiving 500 mg IV q.6 hours.
[2016-12-23] MEDS: LEVAQUIN 500 MG/D5W 100 ML IV SCH (19:24)
[2016-12-23] MEDS ORDERED: ATIVAN IV ONE (21:12)
[2016-12-24] MEDS: FLAGYL 500 MG/NS 100 ML IV SCH ×5 (02:59→20:45)
[2016-12-24] MEDS: DUONEB (A & A) INH SCH ×6 (05:24→23:33)
--- NOTE | 2016-12-24 06:06 | PROGRESS NOTE ---
DATE: 12/24/2016 SUBJECTIVE: Patient doing well. She passed flatus. She has had 4 bowel movements. She tolerated her NG tube being clamped. She also tolerated clear liquids. No major issues. OBJECTIVE: Vital Signs: Patient is currently afebrile. Her most recent set of vital signs had a blood pressure of 156/74, pulse 94, O2 saturation 96% on nasal cannula. General Examination: No acute distress. Alert, interactive, female. Looks stated age. HEENT: Normocephalic, atraumatic. Pupils equal, round, reactive to light. Mucous membranes moist. Oropharynx benign. Neck: Supple. Trachea midline. Cardiovascular: Regular rate and rhythm. Lungs: Grossly clear. Abdomen: Soft, nondistended, nontender. Skin: No signs of jaundice. Vascular: All extremities perfused. Neurologic: Grossly intact. Extremities: Moves all extremities. LABORATORY: Reviewed panel from immunology, does not appear to have any abnormalities. Laboratories from yesterday reviewed. Her INR is still 4.41. ASSESSMENT/PLAN: A 61-year-old, female with multiple medical comorbidities and a small bowel obstruction. 1. Small bowel obstruction. At this time, I think it is improving. She is having bowel movements. We will remove her nasogastric tube and start her on full liquids and monitor her. At this time, none of the panels at this point suggest Crohn's or inflammatory bowel disease but we will defer to gastroenterology. She may need a colonoscopy when she is discharged to evaluate further. 2. Multiple medical comorbidities currently being managed by the hospitalist service. We will continue to follow.
[2016-12-24 06:47] LABS: HEMATOCRIT 33.3 % (37.0-47.0); HEMOGLOBIN 10.4 g/dL (12.0-16.0); MCHC 31.2 g/dL (33-37); MPV 10.4 FL (7.4-10.4); RBC 3.47 XMIL (4.2-5.4)
[2016-12-24 07:40] LABS: AGAP 15; BUN 4 mg/dL (8-22); CALCIUM 8.3 mg/dL (8.8-10.2); CHLORIDE 106 mmol/L (98-107); COSMO 283; POTASSIUM 3.4 mmol/L (3.5-5.1); SODIUM 144 mmol/L (136-145); TCO2 23 mmol/L (25-35)
[2016-12-24] MEDS: PROTONIX IV SCH ×3 (10:10→20:45)
[2016-12-24] MEDS: SODIUM CHLORIDE 0.9% INJ SCH ×3 (10:10→20:45)
--- NOTE | 2016-12-24 12:18 | PROGRESS NOTE ---
DATE: 12/23/2016 SUBJECTIVE: A 62-year-old lady who has a history of IBS-D in the past presents with sudden episode of abdominal distention nausea and vomiting, cramping. She was admitted over the weekend, Dr. Hernandez had seen. The patient was admitted with partial small-bowel obstruction. The patient was kept on NG tube suction which is clamped now. The patient says her abdominal distention is gone. She could feel gas coming out; in fact, she may be getting an urge to go to the bathroom. OBJECTIVE: Awake, alert. Vital Signs: Afebrile with a temp of 97.7 degrees, pulse 90, respirations 14, blood pressure 150/80. HEENT: Mild conjunctival pallor present. Neck is supple. Trachea in midline. Heart: Normal first and second heart sounds. Lungs are clear. Abdomen: Minimally distended, nontender. Bowel sounds are hypoactive but near normal. Extremities unremarkable. Neurologically intact. LABORATORY: White count 5000, hematocrit 32 platelets 151,000. Potassium low at 2.9. Magnesium low at 1.6. IMPRESSION: 1. Small bowel obstruction which is resolving. 2. Mechanical mitral valve, on Coumadin. 3. Vasculopathy. 4. Hypertension. 5. Chronic obstructive pulmonary disease. 6. Decreased abdominal distention. RECOMMENDATION: Continue the current management. Once she has a bowel movement, we can give her clear liquids and, if she tolerates that, we can remove the NG tube. I would correct the potassium and magnesium.
[2016-12-24] MEDS ORDERED: LEXAPRO PO ONE (13:51)
--- NOTE | 2016-12-24 14:12 | PROGRESS NOTE ---
DATE: 12/24/2016 SUBJECTIVE: Ms. Durant is feeling better. NG tube is out. She is drinking fluid well. OBJECTIVE: Vital signs: Temperature 97.8 degrees, pulse 80, respirations 20, blood pressure 156/88. HEENT: Pupils are equal, round. Lungs: Clear in all lung brown. Cardiovascular: Regular rhythm and rate without murmur or S3. Abdomen: Soft. Skin: Warm and dry. : Urine output 500 mL. LABORATORY: White count 5000, hematocrit 33, platelet count 143,000. Sodium 144, potassium 3.4, chloride 106, BUN 4, creatinine 0.8. ASSESSMENT: 1. Small-bowel obstruction which is resolving. 2. Mechanical valve, on Coumadin. 3. Vasculopathy. 4. Hypertension. 5. Chronic chronic obstructive pulmonary disease. PLAN: She is improving clinically. Her laboratory, on heparin at the present time. Coumadin has been held. We will recheck her ProTime in the morning, and she wants to be started back on her anxiety agents. She takes Lexapro 10 mg a day, 0.25 of Xanax in the morning and 0.5 in the evening. We will check a ProTime. I had them draw one today and again in the morning. We can stop her heparin drip soon. Advance diet per Surgery.
[2016-12-24 14:49] LABS: INR 4.92; PROTIME 57.2 Seconds (9.2-11.7)
[2016-12-24] MEDS: HEPARIN 25,000 UNITS/D5W 250 ML IV SCH (15:35)
[2016-12-24] MEDS: XANAX PO SCH ×2 (16:51→20:45)
--- NOTE | 2016-12-24 17:14 | PROGRESS NOTE ---
DATE: 12/24/2016 SUBJECTIVE: Patient currently is feeling better. She has passed flatus. She had 3 bowel movements today. She denies any nausea. She is drinking fluids well. She denies any blood in the stools. OBJECTIVE: Vital signs: Temperature of 98.3 degrees, pulse rate of 107, respiratory 14, blood pressure of 131/96, saturating 92% on 2 L nasal cannula. General Appearance: Moderately build, moderately nourished, lying in bed, in no acute distress. HEENT: Mild pallor. No icterus. Neck: Supple. Chest: Chest is decreased. Baseline COPD. Cardiovascular: Regular rhythm. Tachycardic at times. Abdomen: Soft, mildly protuberant. Mild discomfort in periumbilical region. No rebound or guarding. Extremities: No cyanosis, clubbing or edema. Neurologic: She is alert, awake, oriented. LABORATORY: Hemoglobin and hematocrit is 10.4, 33.3, white count of 5, platelet count of 143,000, MCV of 96. Sodium of 142, potassium 3.4. Chloride 106, bicarb 23, anion gap 15 , BUN of 4. Creatinine 0.8, glucose of 85, calcium is 8.3, magnesium 1.7, INR 4.9. IBD panel is negative. Urine culture showing E. coli, covarrubias sensitive. IMPRESSION AND PLAN: 1. Small bowel obstruction which is resolving. Continue current management per the Surgical Team. 2. Mechanical mitral valve on Coumadin. International normalized ratio is more than 4. Being managed by the Primary Team. We need to watch for any bleeding as she is supratherapeutic. 3. Peripheral vascular disease, status post coronary artery bypass graft and coronary stents and imaging showing mesenteric vasculature atherosclerosis, which could have played a role in patient's small bowel stricture. The patient will see Dr. Auguste on discharge for a colonoscopy and possible biopsy of the terminal ileum if possible. 4. Chronic obstructive pulmonary disease. Patient has quit smoking. The patient will continue on incentive spirometry per the Primary Team. 5. The patient will continue on gastrointestinal prophylaxis with Protonix as per the Primary Team. 6. Further recommendations will follow pending hospital course. MTDD
[2016-12-24] MEDS: NS 1,000 ML IV SCH ×2 (18:59→20:32)
[2016-12-24] MEDS: LEVAQUIN 500 MG/D5W 100 ML IV SCH (18:59)
[2016-12-25] MEDS: FLAGYL 500 MG/NS 100 ML IV SCH ×3 (03:08→21:56)
[2016-12-25] MEDS: DUONEB (A & A) INH SCH ×4 (03:41→16:03)
[2016-12-25] MEDS: NS 1,000 ML IV SCH (06:02)
--- NOTE | 2016-12-25 06:21 | PROGRESS NOTE ---
DATE: 12/25/2016 SUBJECTIVE: Patient doing well. Having bowel movements. Tolerating full liquids. Tolerated her NG tube being out. No nausea or vomiting. OBJECTIVE: Vital Signs: Patient is currently afebrile. Her vital signs have been stable. General: No acute distress. Alert, interactive, female, looks stated age. HEENT: Normocephalic, atraumatic. Pupils equal, round, reactive to light. Mucous membranes moist. Oropharynx benign. Neck: Supple. Trachea midline. Cardiovascular: Regular rate and rhythm. Lungs: Grossly clear. Abdomen: Soft. Nondistended, nontender. Skin: No signs of jaundice. Vascular: All extremities perfused. Neurologic: Grossly intact. Extremities: Moves all extremities. LABORATORY: Reviewed from yesterday. INR 4.92. ASSESSMENT/PLAN: A 61-year-old, female with multiple medical comorbidities and a small bowel obstruction. 1. Small bowel obstruction. At this time, I think it has resolved. She is having bowel movements. She is tolerating a diet. We will advance to a gastrointestinal soft diet. I suspect that she will need a colonoscopy in the future once she is discharged. 2. Multiple medical comorbidities. At this time, being managed by the hospitalist service. We will continue to follow.
[2016-12-25 07:35] LABS: INR 6.39; PROTIME 75.5 Seconds (9.2-11.7)
[2016-12-25 07:36] LABS: PTT HEPARIN PROTOCOL 82.8 Seconds
[2016-12-25] MEDS: SODIUM CHLORIDE 0.9% INJ SCH ×2 (09:47→21:56)
[2016-12-25] MEDS: PROTONIX IV SCH ×2 (09:47→21:56)
[2016-12-25] MEDS: XANAX PO SCH ×2 (09:47→21:56)
[2016-12-25] MEDS ORDERED: PERICOLACE PO PRN (10:31)
--- NOTE | 2016-12-25 11:19 | PROGRESS NOTE ---
DATE: 12/25/2016 SUBJECTIVE: The patient is currently resting well. She has spontaneous nose bleeding. Her INR has continued to climb up. Her INR this morning was 6.39. The primary care team has stopped her heparin this morning. She was advised to put pressure on the right nostril, where she is bleeding from. She denies any abdominal pain, nausea, or vomiting. She had 1 bowel movement this morning. She was able to eat a good meal this morning. Denies any fevers, rigors, chills. PHYSICAL EXAMINATION: Vital signs: Temperature 98.9 degrees, pulse of 87, respiratory rate 20, blood pressure 154/88, saturating 98% on room air. General Appearance: Moderately-nourished, lying in bed, in no acute distress. HEENT: Pale conjunctivae. No icterus. Pupils equal, react to light. Nose bleeding from the right nostril noted. Neck: Supple. Chest: Clear. Heart: Regular rhythm. No murmur. Abdomen: Soft, nontender, nondistended. Bowel sounds present. No guarding. No rebound. Extremities: No cyanosis, clubbing, edema. Neurologic: She is alert, awake, oriented. LABORATORIES: INR of 6.39, PTT of 77.5, PT of 82.8. Her magnesium is 1.6. Her IBD panel is negative. IMPRESSIONS AND PLAN: 1. Partial small-bowel obstruction secondary to small-bowel stricture which I believe is likely ischemic because of known history of peripheral arterial disease, and this has now resolved. The patient will continue to take small, frequent meals, drink plenty of fluids, and seek emergency help if she develops new symptoms of bowel obstruction. She was also advised to follow with Dr. Turner and Dr. Auguste on discharge. If the patient continues to have intermittent bowel obstruction, she may benefit from stricturoplasty. In the interim, she is planning to follow with Dr. Auguste as an outpatient for repeat colonoscopy with possible biopsy of the small bowel. 2. Mechanical mitral valve, on Coumadin. Her INR is more than 6 currently. Her heparin has been stopped. We will request reversal with vitamin K, per the primary care team. 3. Anemia. Continue to follow and she will continue on multivitamin supplementation. 4. Chronic obstructive pulmonary disease. The patient is on incentive spirometry, per the primary care team. 5. Patient will be on gastrointestinal prophylaxis with Protonix once daily. 6. Bowel regimen to continue. 7. Above plan discussed with the patient and the nurse, and all questions were answered.
[2016-12-25] MEDS: HEPARIN 25,000 UNITS/D5W 250 ML IV SCH (12:38)
[2016-12-25] MEDS ORDERED: NS 500 ML IV ONE (13:32)
--- NOTE | 2016-12-25 14:00 | PROGRESS NOTE ---
DATE: 12/25/2016 SUBJECTIVE: She is feeling better. NG tube is out. She is eating. OBJECTIVE: Vital signs: Temp 98.9 degrees, pulse 87, respirations 20, blood pressure 154/88. HEENT: Pupils are equal, round. She was having some bleeding in her nose, a little irritation. Neck: CVP less than 6 cm. Lungs: Clear in all lung brown. Cardiovascular: Regular rhythm and rate without murmur or S3. Abdomen: Soft. Skin: Warm and dry. LAB: Protime is 75; it was 57 yesterday. Still on IV heparin. We will have them stop the IV heparin. Will give her some vitamin K. Give her 1 unit of fresh frozen. ASSESSMENT AND PLAN: 1. She has a mechanical valve. She is on Coumadin. Heparin has been stopped. We are going to give her some vitamin K and may give 1 unit of fresh frozen. 2. Partial small bowel obstruction secondary to small bowel stricture which I believe is likely ischemic with known history of peripheral arterial disease. This has resolved. Patient is doing better. 3. Anemia. 4. Chronic obstructive pulmonary disease. Continue incentive spirometry. 5. Continue Protonix prophylaxis once a day.
[2016-12-25] MEDS ORDERED: VITAMIN K 10 MG in NS 50 ML IV ONE (14:30)
[2016-12-25] MEDS: ICAR-C PO SCH (21:55)
[2016-12-25] MEDS: LEVAQUIN 500 MG/D5W 100 ML IV SCH (22:05)
[2016-12-26] MEDS: DUONEB (A & A) INH SCH ×6 (05:16→23:03)
[2016-12-26] MEDS: FLAGYL 500 MG/NS 100 ML IV SCH ×4 (05:38→21:18)
--- NOTE | 2016-12-26 05:50 | EKG Report ---
Test Performed on : 12/25/2016 11:50:54 PM Test Reason : No Order in Scaleform Blood Pressure : / mmHG Vent. Rate : 109 BPM Atrial Rate : 109 BPM P-R Int : 176 ms QRS Dur : 082 ms QT Int : 342 ms P-R-T Axes : 072 062 021 degrees QTc Int : 460 ms Sinus tachycardia. with premature atrial complexes. ST & T wave abnormality, consider anterior ischemia Abnormal ECG When compared with ECG of 19-MAY-2016 10:52, premature ventricular complexes. are no longer present premature atrial complexes. are now present Confirmed by Bri FREITAS, Sha Kearney ([id number]) on 12/26/2016 5:19:07 PM
--- NOTE | 2016-12-26 05:58 | PROGRESS NOTE ---
DATE: 12/26/2016 SUBJECTIVE: The patient doing okay. She did have some nausea. Sounds like it was related to after she had all her medications and not related to food. Otherwise, she is still tolerating a GI soft diet. Having bowel movements. No significant pain. OBJECTIVE: Vital Signs: Patient is currently afebrile. Her vital signs have been stable. General: No acute distress. Alert, interactive, female, looks stated age. HEENT: Normocephalic, atraumatic. Pupils equal, round, reactive to light. Mucous membranes moist. Oropharynx benign. Neck: Supple. Trachea midline. Cardiovascular: Regular rate and rhythm. Lungs: Grossly clear. Abdomen: Soft, nondistended, nontender. Skin: No signs of jaundice. Vascular: All extremities perfused. Neurologic: Grossly intact. Extremities: Moves all extremities. LABORATORY: Reviewed from yesterday INR 6.39. ASSESSMENT/PLAN: A 61-year-old, female with multiple medical comorbidities and small bowel obstruction. 1. Small bowel obstruction. At this time, I think she is clinically resolved. I do not think the nausea was related to a bowel obstruction at this time. I would recommend continue to watch her. 2. Coagulopathy. At this time she is still requiring some degree of reversal of her Coumadin. We will monitor for now. She has no signs of obvious bleeding. 3. Multiple medical comorbidities, at this time being managed by the hospitalist service.
[2016-12-26 07:03] LABS: INR 1.17; PROTIME 12.4 Seconds (9.2-11.7)
[2016-12-26] MEDS: PROTONIX IV SCH ×2 (08:27→21:13)
[2016-12-26] MEDS: NS 1,000 ML IV SCH ×2 (08:27→23:19)
[2016-12-26] MEDS: CENTRUM SILVER PO SCH ×3 (08:27→08:36)
[2016-12-26] MEDS: ICAR-C PO SCH ×4 (08:27→21:11)
[2016-12-26] MEDS: SODIUM CHLORIDE 0.9% INJ SCH ×2 (08:27→21:13)
[2016-12-26] MEDS: XANAX PO SCH ×3 (08:32→22:59)
--- NOTE | 2016-12-26 09:38 | PROGRESS NOTE ---
DATE: 12/26/2016 SUBJECTIVE: Ms. Durant is feeling that she had a rough night yesterday, though had some nausea after she swallowed an iron tablet and after that, she had a bowel movement. So, her tummy feels better today. She has some areas of ecchymoses on the posterior leg. No pain. No active bleeding. No sign of petechiae. OBJECTIVE: Vital Signs: Temp 98 degrees. She has remained afebrile. Pulse 98, respirations 24 and blood pressure 142/86. Lungs: Clear in all lung brown. Cardiovascular: Regular rhythm and rate without murmur or S3. Abdomen: Soft. Skin: Warm and dry. Urine output 1200 mL. LAB: Reviewed. Electrolytes from the looked good. Pro time is down to 12.4. So we will start her back. ASSESSMENT AND PLAN: 1. At this point, give her Lovenox at 1 mg/kg. Put her back on her on her Coumadin in attempts to get her back therapeutic. She was on 4 mg daily, so we will start her back on that. 2. Small-bowel obstruction. Better. 3. Episode of nausea yesterday.
[2016-12-26] MEDS: LOVENOX SUBQ SCH ×2 (11:19→21:18)
[2016-12-26] MEDS: LEVAQUIN 500 MG/D5W 100 ML IV SCH (18:00)
[2016-12-26] MEDS: COUMADIN PO SCH (21:11)
[2016-12-26] MEDS: ISORDIL PO SCH (21:12)
[2016-12-27] MEDS: DUONEB (A & A) INH SCH ×4 (04:15→23:43)
[2016-12-27] MEDS: PRILOSEC PO SCH (07:00)
[2016-12-27] MEDS: LEXAPRO PO SCH (09:00)
[2016-12-27] MEDS: ICAR-C PO SCH (09:00)
[2016-12-27] MEDS: PROTONIX IV SCH ×2 (09:00→21:30)
[2016-12-27] MEDS: XANAX PO SCH ×2 (09:00→21:30)
[2016-12-27] MEDS: ASPIRIN PO SCH (09:00)
[2016-12-27] MEDS: COZAAR PO SCH (09:00)
[2016-12-27] MEDS: PRAVACHOL PO SCH (09:00)
[2016-12-27] MEDS: ALDACTONE PO SCH (09:00)
[2016-12-27] MEDS: CENTRUM SILVER PO SCH (09:00)
[2016-12-27] MEDS: LOPRESSOR PO SCH (09:00)
[2016-12-27] MEDS: LOVENOX SUBQ SCH ×2 (09:15→21:30)
[2016-12-27] MEDS: FLAGYL 500 MG/NS 100 ML IV SCH ×3 (10:00→22:00)
--- NOTE | 2016-12-27 10:06 | PROGRESS NOTE ---
DATE: 12/27/2016 SUBJECTIVE: Patient doing well today. Tolerated a diet. No nausea. Having bowel movements. OBJECTIVE: Vital Signs: Patient is currently afebrile. Her vital signs have been stable. General: No acute distress. Alert, interactive, female, looks stated age. HEENT: Normocephalic, atraumatic. Pupils equal, round, react to light. Mucous membranes moist. Oropharynx benign. Neck: Supple. Trachea midline. Cardiovascular: Regular rate and rhythm. Lungs: Grossly clear. Abdomen: Soft, nontender, nondistended. Skin: No signs of jaundice. Vascular: All extremities perfused. Neurologic: Grossly intact. Extremities: Moves all extremities. LABORATORY: Currently pending. ASSESSMENT/PLAN: A 41-year-old female with multiple medical comorbidities with bowel obstruction. 1. Small-bowel obstruction. At this time, I think she is clinically resolved. Will need a colonoscopy at some point in the future. 2. Coagulopathy. At this time, being managed by the hospitalist service. 3. Multiple medical comorbidities. Currently being managed by the hospitalist service. cc: Mychal Turner MD
--- NOTE | 2016-12-27 14:18 | PROGRESS NOTE ---
DATE: 12/27/2016 SUBJECTIVE: Ms. Durant feels a lot better. The ecchymosis is going down in her left posterior thigh. Her pro time was right around 13. She is on Lovenox 1 mg/kg subcutaneously q.12 hours. This is because of history of a mechanical valve. Her bowels are moving. She is eating well. Feels good. Breathing comfortably. PHYSICAL EXAMINATION: Vital Signs: Stable. Lungs: Clear in all lung brown. Cardiovascular: Regular rhythm and rate, without murmur or S3. Abdomen: Soft. Skin: Warm and dry. ASSESSMENT/PLAN: 1. Small-bowel obstruction, resolved. 2. History of mechanical valve, on Lovenox bridge waiting for Coumadin dose to come up. As we recall, she had Coumadin toxicity with pro times approaching 70 and so we had to give her vitamin K and fresh frozen plasma. She is back on 5 mg Coumadin at bedtime. Hopefully, she can go home on Thursday. I would like her pro time to be in the 17 to 18 range with INR close to 2. cc: Sha Gregory MD
[2016-12-27] MEDS ORDERED: TYLENOL ONE (16:49)
[2016-12-27] MEDS ORDERED: TYLENOL PO PRN (16:54)
[2016-12-27] MEDS: LEVAQUIN 500 MG/D5W 100 ML IV SCH (16:55)
[2016-12-27] MEDS: NS 1,000 ML IV SCH (17:00)
[2016-12-27 18:08] LABS: INR 1.18; PROTIME 12.5 Seconds (9.2-11.7)
[2016-12-27] MEDS: SODIUM CHLORIDE 0.9% INJ SCH (21:30)
[2016-12-27] MEDS: COUMADIN PO SCH (21:30)
[2016-12-27] MEDS: ISORDIL PO SCH (21:30)
[2016-12-28] MEDS: ICAR-C PO SCH ×3 (00:31→21:26)
[2016-12-28] MEDS: DUONEB (A & A) INH SCH ×4 (03:15→23:11)
[2016-12-28] MEDS: FLAGYL 500 MG/NS 100 ML IV SCH ×2 (04:19→09:30)
[2016-12-28] MEDS: NS 1,000 ML IV SCH (04:20)
[2016-12-28] MEDS: PRILOSEC PO SCH (06:17)
--- NOTE | 2016-12-28 07:43 | PROGRESS NOTE ---
DATE: 12/28/2016 SUBJECTIVE: Patient doing well. Tolerated her diet. No nausea. Having bowel movements. OBJECTIVE: Vital Signs: Patient is currently afebrile. Her vital signs have been stable. General Examination: No acute distress. Alert and interactive, female, looks stated age. HEENT: Normocephalic, atraumatic. Pupils equal, round, reactive to light. Mucous membranes moist. Oropharynx benign. Neck: Supple. Trachea midline. Cardiovascular: Regular rate and rhythm. Lungs: Grossly clear. Abdomen: Soft, nontender, nondistended. Extremities: Moves all extremities. Neurologic: Grossly intact. Skin: No signs of jaundice. Vascular: All extremities perfused. ASSESSMENT AND PLAN: A 41-year-old, female with multiple medical comorbidities with a bowel obstruction. 1. Bowel obstruction. At this time, she is clinically resolved. I do not suspect any surgical intervention will be needed. I will be available if needed but I will sign off for right now. The patient does need a colonoscopy once medically stable and discharged. 2. Coagulopathy. At this time, being managed by the hospitalist service. She does have a mechanical valve. 3. Multiple medical comorbidities currently being managed by the hospitalist service. cc: Mychal Turner MD
[2016-12-28 07:52] LABS: INR 1.2; PROTIME 12.8 Seconds (9.2-11.7)
[2016-12-28] MEDS: LEXAPRO PO SCH (09:30)
[2016-12-28] MEDS: CENTRUM SILVER PO SCH (09:30)
[2016-12-28] MEDS: LOPRESSOR PO SCH (09:30)
[2016-12-28] MEDS: LOVENOX SUBQ SCH ×2 (09:30→21:27)
[2016-12-28] MEDS: PROTONIX IV SCH (09:30)
[2016-12-28] MEDS: XANAX PO SCH ×2 (09:31→21:27)
[2016-12-28] MEDS: ALDACTONE PO SCH (09:31)
[2016-12-28] MEDS: ASPIRIN PO SCH (09:31)
[2016-12-28] MEDS: COZAAR PO SCH (09:31)
[2016-12-28] MEDS: PRAVACHOL PO SCH (09:31)
[2016-12-28] MEDS ORDERED: COUMADIN PO ONE (11:14)
--- NOTE | 2016-12-28 12:37 | PROGRESS NOTE ---
DATE: 12/28/2016 SUBJECTIVE: Ms. Durnat is feeling much better. Tumpelon is working well. She is still tired. Breathing comfortably. OBJECTIVE: Vital Signs: Afebrile. Temperature 98.2 degrees, pulse 90, respirations 22, blood pressure 122/88. HEENT: Pupils equal, round. Lungs: Clear in all lung brown. Cardiovascular: Regular rhythm and rate without murmur or S3. Good urine output. LABORATORY DATA: Reviewed from the . Hematocrit stable at 33. Electrolytes are okay. We probably ought to repeat that. Prothrombin time is 12.8, INR is 1.20. ASSESSMENT AND PLAN: 1. Small-bowel obstruction which is resolved. No surgical intervention needed. Eating, having good bowel movements. 2. Coagulopathy. Continue to give her Lovenox bridge. Put her back on her Coumadin. She has a mechanical mitral valve. [facility]. 3. [facility] mechanical valve. Put in 1999 at [place]. Needs to have fairly good anticoagulation so right now, she is on 4 mg p.o. at bedtime, and appears to be heading in the right direction. She does have a hematoma in the left thigh that is resolving. 4. She is on Coumadin 4 mg at bedtime, Aldactone 12.5 mg daily, Pravachol 20 mg daily, Protonix 40 mg IV q.12 hours. Prilosec 40 mg daily, Lopressor 40-50 mg daily. Cozaar 50 mg daily, and we can stop her Levaquin and the Flagyl. cc: Sha Gregory MD
[2016-12-28] MEDS: ISORDIL PO SCH (21:25)
[2016-12-28] MEDS: COUMADIN PO SCH (21:26)
[2016-12-29] MEDS: DUONEB (A & A) INH SCH ×5 (03:31→15:12)
[2016-12-29] MEDS: PRILOSEC PO SCH (06:21)
[2016-12-29 07:19] LABS: INR 1.41; PROTIME 15.1 Seconds (9.2-11.7)
[2016-12-29 08:14] VITALS: BP 128/76
[2016-12-29] MEDS: CENTRUM SILVER PO SCH (08:32)
[2016-12-29] MEDS: LEXAPRO PO SCH (08:32)
[2016-12-29] MEDS: PRAVACHOL PO SCH (08:32)
[2016-12-29] MEDS: ALDACTONE PO SCH (08:32)
[2016-12-29] MEDS: COZAAR PO SCH (08:32)
[2016-12-29] MEDS: ASPIRIN PO SCH (08:33)
[2016-12-29] MEDS: ICAR-C PO SCH (08:33)
[2016-12-29] MEDS: LOPRESSOR PO SCH (08:33)
[2016-12-29] MEDS: XANAX PO SCH (08:33)
[2016-12-29] MEDS: LOVENOX SUBQ SCH (08:43)
--- NOTE | 2016-12-29 11:39 | PROGRESS NOTE ---
DATE: 12/29/2016 SUBJECTIVE: Patient is resting in bed. She denies any nausea, vomiting, or vomiting blood. She had a bowel movement today. She denies any blood in the stools. She denies any abdominal pain this morning. She was able to eat some breakfast this morning. She denies any fevers, rigors, or chills. OBJECTIVE: Vital signs: Temperature of 98.8 degrees, pulse rate of 106, respiratory rate of 20, blood pressure 128/76, saturating 94% on room air. General Appearance: Thinly built, lying in bed, in no acute distress. HEENT: Pale conjunctivae. No icterus. Pupils equal, reactive to light. Neck: Supple. Chest: Decreased breath sounds. Cardiac: Tachycardic at times. Abdomen: Protuberant. Tympanic on percussion. Bowel sounds present. No rebound or guarding. No hepatosplenomegaly. Extremities: No cyanosis, clubbing, and edema. Neurologic: She is alert, awake, oriented. LAB: Hemoglobin and hematocrit is 10.4 and 33.3 from 12/24/2016. Her magnesium is 1.6. INR 1.41, PT 15.1. Stool lactoferrin is positive. Inflammatory bowel disease panel at the [facility] is negative for Crohn's disease and ulcerative colitis. IMPRESSION AND PLAN: 1. Partial small bowel obstruction secondary to small bowel stricture. Currently improved. Dr. Turner is following. She is denying any nausea, vomiting, or abdominal pain at this moment. The patient was scheduled for outpatient colonoscopy by Dr. Auguste in order to biopsy the small bowel segment if possible. The patient will avoid corn, nuts, and seeds, and chew the food well. If patient develops repeated bouts of small bowel obstruction then she may need antrotomy or stricturoplasty per the surgical team. I discussed that with the patient. 2. Coagulopathy. She is currently on Lovenox bridge. She is also on Coumadin. She has a mechanical mitral valve. 3. Chronic smoker. Has now quit. Has history of chronic obstructive pulmonary disease which is being monitored by the primary team. 4. Anemia. Will continue to follow. Will keep her on iron and multivitamins in addition. 5. Gastrointestinal prophylaxis. Protonix once daily. 6. Bowel regimen. Continue. The above was discussed with the patient and all questions answered. cc: MD Sha Arguelles MD Manish Arora, MD
--- NOTE | 2016-12-29 14:28 | DISCHARGE SUMMARY ---
ADMISSION DATE: 12/21/2016 DISCHARGE DATE: 12/29/2016 HOSPITAL COURSE: This is a 61-year-old female with history of vasculopathy, came in for abdominal pain which began the day before on 12/21/2016 actually been dealing at home with irritable bowel syndrome for about 2 years, intermittent abdominal cramping, occasional vomiting, couple days before she came into the emergency room took a laxative for constipation which did relieve her but then began to have cramping abdominal pain and not really able to pass any gas, became more constipated. Denies any diarrhea, denied any loose stool movements prior to her worsening symptoms. Denied any hematochezia or melena. Found to have small bowel obstruction. Was treated conservatively. CT of the abdomen, pelvis showed moderate long segmental wall thickening, inflammation of the mid small bowel causing obstruction. 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 She had an NG tube for extended time. She has history of mechanical valve [employer]. Shiv valve, mitral valve and so Coumadin was held. She did have an elevated pro time on admission and Coumadin was held and pro time continued to go up. She was put on IV heparin but we eventually had to give her some fresh frozen 1 unit fresh frozen and 10 of vitamin K 10 mg which brought pro time back down again. We stopped her heparin. Her tummy did better, NG tube able to take out and she advanced her eating a regular diet. Put her on Coumadin, pro time was 15. Will keep her on Coumadin 5 mg at bedtime. She is to get pro time checked on Thursday and then once a week for 4 weeks with her family practice doctor and she will get followup with Cardiology as well. DISCHARGE MEDICATIONS: Will be Coumadin 5 mg a day, Aldactone 12.5 mg daily, Callie-Colace 1 b.i.d. p.r.n., Pravachol 20 mg a day, Prilosec 40 mg a day, multivitamin 1 a day, Lopressor 50 mg a day, Cozaar 50 mg a day, Isordil 30 mg at bedtime,iron, vitamins C which is Icar-C 1 b.i.d., Lexapro 10 mg a day, aspirin 81 mg a day, Xanax 0.5 mg b.i.d. cc: Sha Gregory MD
== END 2016-12-29 15:39 | disposition home or self-care (01) ==
LOC: ED 10:00 → EDIPHOLD 14:41 → 3N 12-22 01:00
PROVIDERS: ATTEND Emergency Medicine